=== PATIENT | male | born 1980 | race Caucasian/White ===

== ENCOUNTER 2017-10-26 17:27 | Emergency (ER) | payer BC ==
[~2017-10-26] VITALS: Ht 180.3 cm; Wt 95.2 kg
== END 2017-10-26 19:08 | disposition home or self-care (01) ==
LOC: ER 17:27
DX: R10.13 Epigastric pain (principal)
CPT/HCPCS: 74022; 99283

== ENCOUNTER → 2019-03-28 | Outpatient (CLI) | payer BC ==
[2019-03-30 08:09] LABS: CHLAMYDIA TRACHOMATIS, NAA Negative (Negative); NEISSERIA GONORRHOEAE, NAA Negative (Negative)
== END | disposition home or self-care (01) ==
LOC: LAB SHORT 14:20 → LAB 14:20
PROVIDERS: Family Medicine
DX: N45.1 Epididymitis (principal); N50.819 Testicular pain, unspecified
CPT/HCPCS: 87086; 87491; 87591

== ENCOUNTER 2022-01-20 10:21 | Emergency (ER) | payer BC ==
[~2022-01-20] VITALS: Ht 180.3 cm; Wt 102.1 kg
[2022-01-20] MEDS ORDERED: IBUP800 PO (11:35)
== END 2022-01-20 11:44 | disposition home or self-care (01) ==
LOC: ER 10:21
DX: S83.91XA Sprain of unspecified site of right knee, initial encounter (principal); W19.XXXA Unspecified fall, initial encounter; Y93.41 Activity, dancing
CPT/HCPCS: 73562-RT